=== PATIENT | male | born 1950 | race American Indian/Alaskan Native ===

== ENCOUNTER 2018-10-07 11:21 | Day surgery (SDC) | payer OTHER ==
[~2018-10-07 11:21] MED LIST: NACL 0.9% 1000 ML 1,000 ML IV SCH
[2018-10-07] MEDS ORDERED: XYLOCAINE MPF 2% ONE (13:00)
[2018-10-07] MEDS ORDERED: SUBLIMAZE ONE (13:02)
[2018-10-07] MEDS ORDERED: DIPRIVAN 10 MG/ML IV ONE ×2 (13:02)
[2018-10-07] MEDS ORDERED: VERSED ONE (13:02)
[2018-10-07] MEDS ORDERED: XYLOCAINE 2% UROJET UR ONE (13:31)
--- NOTE | 2018-10-07 13:49 | Operative Report ---
PROCEDURE: EGD with biopsy. INDICATIONS: This is a 68-year-old -[place] gentleman with an underlying history of hypertension, family history of cancer who had noticed some GI bleeding and been having some GERD symptoms. EGD was done to make sure there was not any significant upper GI pathology present. DESCRIPTION OF PROCEDURE: The procedure was done after getting informed consent with MAC anesthesia. Instrument was passed through the hypopharynx into the esophagus, which showed moderate distal erosive esophagitis. There was a slight area of slightly abnormal mucosa in the GE junction. Photo documentation and biopsy was obtained from that area. The stomach showed antral gastritis, but no ulcers were noted in the straight or the retroverted view. Biopsy was done from the gastric antrum and the gastric body and angular incisura. The pylorus is patent. The duodenum, the first and the second portion appeared normal. There was minimal bleeding associated with the procedure. No complications associated with the procedure. ASSESSMENT: Gastroesophageal reflux disease symptoms, moderate distal erosive esophagitis, gastritis. No peptic ulcer disease noted. Plan is to treat the patient with PPI and have the patient to avoid aspirin and aspirin-related products for the next few days. A colonoscopy will also be done for further assessment and the patient will be asked to avoid aspirin and aspirin-related products and follow up in the office in 1-2 weeks' time. RN, Kim Holt was in the room throughout the entirety of the procedure. JOB# [id number] GABRIELLA/ESTEFANIA
--- NOTE | 2018-10-07 14:03 | Procedure Note ---
Date of procedure: 10/07/18 Pre-op diagnosis: GI Bleeding/ GERD/ Colon Polyp Screening Post-op diagnosis: other (Moderate,Erosive Esophagitis/ Gastritis/Hematochezia secondary to Internal Hemorrhoids (s/p Banding x 4)/ Minor,Diverticular Disease/ Small Rectal Polyps (Hyperplastic)/External Hemorrhoids) Procedure: EGD with Biopsy/Colonoscopy and Biopsy/Flexible Sigmoidoscopy with Banding Anesthesia: MAC Surgeon: GEMA HOLBROOK Estimated blood loss: minimal Pathology: list Specimen disposition: to lab Condition: stable Disposition: same day (Treat with PPI and Sitz Bath. Avoid aspirin and NSAID for 5 days and follow up in 1 to 2 weeks ([phone]).)
--- NOTE | 2018-10-07 14:07 | Operative Report ---
INDICATIONS: This is a 68-year-old -Stateless gentleman with an underlying history of hypertension, family history of cancer. Colonoscopy was done to assess for possible colon polyps and also because of his history of GI bleeding. DESCRIPTION OF PROCEDURE: EGD done prior to the colonoscopy had shown moderate distal erosive esophagitis and gastritis, but no evidence of any active upper GI bleeding and no peptic ulcer disease. Initial rectal exam showed presence of an external hemorrhoid. No other pathology. The instrument was passed through the rectum onto the cecum, which was identified with the ileocecal valve and the appendiceal orifice. Visualization was fair to good. The colon was retroflexed in the cecum, did not show any additional findings. The cecum and the ascending colon and most of the transverse colon showed normal mucosa. There were a few minor diverticula noted in the left colon. In the rectum, there were two small polyps, possibly hyperplastic that were removed by cold biopsy. The rectum showed moderate internal hemorrhoids on the retroverted view, which may have been the cause of the patient's bleeding. ASSESSMENT: Hematochezia, possibly secondary to moderate internal hemorrhoids. There was external hemorrhoid also present. Minor left colon diverticular disease. Small rectal polyp possibly hyperplastic that were removed and with minimal bleeding and no other significant pathology noted. PLAN: Plan is to do a flex sig with banding. The patient had minimal bleeding with the colonoscopy and no complications associated with it. Plan will also be to treat the hemorrhoids and also to band them and have the patient follow up in the office in 1-2 weeks' time. In addition, the patient will be placed on a PPI because of the upper GI findings of moderate erosive esophagitis and gastritis. Kim SANTILLAN was in the room for the entirety of the procedure. JOB# [id number] GABRIELLA/ESTEFANIA
--- NOTE | 2018-10-07 14:14 | Anesthesia Day of Surgery ---
Anesthesia Day of Surgery - Day of Surgery Patient Examined: Yes Patient H&P Reviewed: Yes Patient is NPO: Yes
--- NOTE | 2018-10-07 14:14 | Anesthesia Consultation ---
Anesthesia Consult and Med Hx Date of service: 10/07/18 - Airway Anesthetic Teeth Evaluation: Good ROM Head & Neck: Adequate Mental/Hyoid Distance: Adequate Mallampati Class: Class I Intubation Access Assessment: Good - Pulmonary Exam CTA: Yes - Cardiac Exam Cardiac Exam: RRR - Pre-Operative Health Status ASA Pre-Surgery Classification: ASA2 Proposed Anesthetic Plan: MAC - Cardiovascular System Hx Hypertension: Yes - Gastrointestinal Hx Gastroesophageal Reflux Disease: Yes
[2018-10-07 14:18] VITALS: BP 121/94
--- NOTE | 2018-10-07 14:20 | Operative Report ---
PROCEDURES: Flexible sigmoidoscopy with banding. INDICATIONS: This is a 68-year-old -[place] gentleman with an underlying history of hypertension, family history of cancer, who underwent an EGD and a colonoscopy. Colonoscopy showed presence of moderate internal hemorrhoid, which may have been the cause of the patient's bleeding. EGD has shown presence of esophagitis and gastritis, but no peptic ulcer disease. A flexible with banding was done to treat for the moderate internal hemorrhoids. DESCRIPTION OF PROCEDURE: The procedure was done after getting informed consent with MAC anesthesia. The EGD scope with the banding apparatus mounted was introduced and retroflexed. Four of the largest hemorrhoids were then suctioned into the suction channel and a band was applied to each of these for hemorrhoids. There was minimal to no bleeding associated with the procedure. No complications of the procedure. At the end of the procedure, lidocaine gel was injected into the rectum. ASSESSMENT: Hematochezia secondary to moderate internal hemorrhoids, status post banding x 4. Plan is to advise the patient to take Sitz bath and treat the patient with PPI because of the upper GI findings of esophagitis, gastritis and follow up in the office in 1-2 weeks' time and avoid aspirin and aspirin-related products for the next 5-6 days. RN, Kim Holt was in the room throughout the entirety of the procedure. JOB# [id number] GABRIELLA/ESTEFANIA
[2018-10-07] MEDS ORDERED: INFANTS' GAS RELIEF PO PRN (14:45)
--- NOTE | 2018-10-07 19:26 | Operative Report ---
INDICATIONS: This is a 68-year-old -[place] gentleman with an underlying history of hypertension, family history of cancer, who had been having GERD symptoms. EGD was done to assess for any significant upper GI pathology that the patient might have: The procedure was done after getting informed consent with MAC anesthesia. Instrument was passed through the hypopharynx into the esophagus, which showed moderate distal erosive esophagitis and a small area of slightly abnormal mucosa at the GE junction. Photo documentation and biopsy was obtained from this area. The stomach showed antral gastritis. No ulcers were noted in the straight or the retroverted view. The pylorus was patent. The duodenum in the first and second portion appeared normal. Biopsy was done from the gastric antrum, gastric body, and ____ to rule out for H. pylori and atrophic gastritis. There was minimal bleeding from the biopsy sites and no complications associated with the procedure. ASSESSMENT: History of gastrointestinal bleeding. No source of upper GI bleeding noted. No peptic ulcer noted, moderate distal erosive esophagitis, gastritis. PLAN: Plan is to treat the patient with PPI. Colonoscopy for further assessment. The patient will be asked to avoid aspirin and aspirin-related products for the next few days and follow up in the office in 1-2 weeks' time. RNKim was in the room throughout the entirety of the procedure. JOB# [id number] GABRIELLA/ESTEFANIA MARTINEZ
== END 2018-10-07 11:22 | disposition home or self-care (01) ==
LOC: GIO 11:21
DX: K29.50 Unspecified chronic gastritis without bleeding (principal); K21.0 Gastro-esophageal reflux disease with esophagitis; K62.1 Rectal polyp; K64.8 Other hemorrhoids; I10 Essential (primary) hypertension; F17.210 Nicotine dependence, cigarettes, uncomplicated; Z79.899 Other long term (current) drug therapy; Z80.8 Family history of malignant neoplasm of other organs or systems
CPT/HCPCS: 43239; 45380; 46221; 88305; 88342; J2250; J2704; J3010